=== PATIENT | female | born 1955 | race Hispanic/Latino ===

== ENCOUNTER 2022-01-19 20:42 | Emergency (ER) | payer BC ==
[2022-01-19 22:00] LABS: Absolute Lymphocytes (CBC) 2.3 K/uL (0.7-4.9); Hematocrit 36.9 % (36.0-45.0); Lymphocytes % 24.6 % (15.3-44.8); MPV 8.3 fL (7.6-11.3)
[2022-01-19 22:01] LABS: Protime INR 1.12
[2022-01-19 22:22] LABS: ALT/SGPT 26 U/L (12-78); Albumin 3.8 g/dL (3.4-5.0); Alkaline Phosphatase 97 U/L (45-117); BUN Blood Urea Nitrogen 21 mg/dL (7-18); Bicarbonate 25 mmol/L (21-32); Bilirubin Total 0.3 mg/dL (0.2-1.0); Glucose Level 120 mg/dL (74-106); NT PRO-BNP 39 pg/mL (<125); Sodium Level 140 mmol/L (136-145); Troponin High Sensitivity 9.7 pg/mL (<58.9)
[2022-01-19 22:23] LABS: AST/SGOT 28 U/L (15-37); Bilirubin Direct < 0.1 mg/dL (0-0.2); Magnesium 2.2 mg/dL (1.8-2.4); Potassium 4.3 mmol/L (3.5-5.1)
--- NOTE | 2022-01-20 00:22 | EDPHYS ---
Physician Documentation [facility] Name: Yasmany Calvert Age: 66 yrs Sex: Female : 1955 Arrival Date: 01/19/2022 Time: 20:48 Bed 15 Private MD: ED Physician Eduar Cartwright HPI: 01/19 21:30 This 66 yrs old Female presents to ER via Ambulatory with complaints of Headache, Chest cp Pain. 21:30 The patient complains of pain to the right evangelical and left evangelical. The patient cp describes the headache as aching. Onset: The symptoms/episode began/occurred 2 hour(s) ago. 21:30 Associated signs and symptoms: Pertinent positives: chest pain, shortness of breath, cp numbness to left lower leg, Pertinent negatives: neck stiffness, vision changes, vomiting, weakness. Severity of symptoms: in the emergency department the pain is unchanged, despite home interventions. 21:30 The patient has been recently seen by a physician: LYNN 3 day(s) ago, with similar cp presenting complaints, and apparently given a diagnosis of vertigo, prescribed meclizine and metoprolol. Historical: - Allergies: 20:51 No Known Allergies; lp1 - Home Meds: 20:51 None [Active]; lp1 - PMHx: 20:51 Hypertensive disorder; lp1 - PSHx: 20:51 None; lp1 - Immunization history:: Adult Immunizations up to date, Client reports receiving the Suleiman \\T\\ Suleiman single-dose vaccine. - Social history:: Smoking status: Patient denies any tobacco usage or history of. ROS: 21:35 Constitutional: Negative for body aches, chills, fever, poor PO intake. cp 21:35 Cardiovascular: Positive for chest pain, Negative for edema, palpitations. cp 21:35 Respiratory: Negative for cough, shortness of breath, wheezing. cp 21:35 Abdomen/GI: Negative for abdominal pain, nausea, vomiting, and diarrhea. 21:35 Eyes: Negative for injury, pain, redness, and discharge. cp 21:35 ENT: Negative for drainage from ear(s), ear pain, sore throat, difficulty swallowing, difficulty handling secretions. 21:35 Back: Negative for pain at rest, pain with movement. 21:35 Skin: Negative for cellulitis, rash. 21:35 Neuro: Positive for headache, numbness to left lower leg, Negative for altered mental status, syncope, weakness. 21:35 All other systems are negative. Exam: 21:02 ECG was reviewed by the Attending Physician. cp 21:40 Constitutional: The patient appears in no acute distress, alert, awake, cp non-diaphoretic, non-toxic, well developed, well nourished, uncomfortable. 21:40 Head/Face: Normocephalic, atraumatic. cp 21:40 Eyes: Periorbital structures: appear normal, Pupils: equal, round, and reactive to cp light and accomodation, Extraocular movements: intact throughout, Conjunctiva: normal, no exudate, no injection, Sclera: no appreciated abnormality, Lids and lashes: appear normal, bilaterally. 21:40 ENT: External ear(s): are unremarkable, Nose: is normal, Mouth: Lips: moist, Oral mucosa: pink and intact, moist, Posterior pharynx: Airway: no evidence of obstruction, patent. 21:40 Neck: ROM/movement: is normal, is supple, without pain, no range of motions limitations. 21:40 Chest/axilla: Inspection: normal, Palpation: is normal, no crepitus, no tenderness. 21:40 Cardiovascular: Rate: normal, Rhythm: regular, Edema: is not appreciated, JVD: is not appreciated. 21:40 Respiratory: the patient does not display signs of respiratory distress, Respirations: normal, no use of accessory muscles, no retractions, labored breathing, is not present, Breath sounds: are clear throughout, no decreased breath sounds, no stridor, no wheezing. 21:40 Abdomen/GI: Inspection: abdomen appears normal, Palpation: abdomen is soft and non-tender, in all quadrants. 21:40 Back: pain, is absent, ROM is normal. 21:40 Neuro: Orientation: to person, place \\T\\ time. Mentation: is normal, Cerebellar function: Romberg testing is negative, heel to hensley testing is normal, Motor: moves all fours, strength is normal, Sensation: numbness, that is mild, of the left lower leg. Vital Signs: 20:51 BP 177 / 83; Pulse 83; Resp 18; Temp 98.6(O); Pulse Ox 100% on R/A; Weight 62.6 kg (R); lp1 Height 5 ft. 0 in. (152.40 cm); Pain 6/10; 22:00 BP 152 / 66; Pulse 66; Resp 15; Pulse Ox 98% on R/A; sm5 01/20 00:20 BP 137 / 68; Pulse 70; Resp 21; Pulse Ox 99% on R/A; sm5 01:30 BP 155 / 82; Pulse 76; Resp 14; Pulse Ox 100% on R/A; sm5 02:47 BP 168 / 78; Pulse 72; Resp 12; Pulse Ox 99% on R/A; sm5 01/19 20:51 Body Mass Index 26.95 (62.60 kg, 152.40 cm) lp1 MDM: 01/19 21:25 Patient medically screened. cp 01/20 00:00 Data reviewed: vital signs, nurses notes, lab test result(s), EKG, radiologic studies, cp CT scan, plain films. 00:00 Test interpretation: by ED physician or midlevel provider: ECG, plain radiologic cp studies. Counseling: I had a detailed discussion with the patient and/or guardian regarding: the historical points, exam findings, and any diagnostic results supporting the discharge/admit diagnosis, lab results, radiology results, the need to transfer to another facility, [facility] does not immediately have the required specialist. Response to treatment: the patient's symptoms have markedly improved after treatment. 01/19 21:39 Order name: Basic Metabolic Panel; Complete Time: 23:27 cp 01/19 23:27 Interpretation: Normal except: CL 109; GLUC 120; BUN 21; GFR 53. cp 01/19 21:39 Order name: CBC with Diff; Complete Time: 22:05 cp 01/19 23:27 Interpretation: Normal except: EOSINOPHIL % 5.2. cp 01/19 21:39 Order name: LFT's; Complete Time: 23:27 cp 01/19 23:28 Interpretation: Normal except: GLOB 4.2; A/G 0.9. cp 01/19 21:39 Order name: Magnesium; Complete Time: 23:27 cp 01/19 21:39 Order name: NT PRO-BNP; Complete Time: 23:27 cp 01/19 21:39 Order name: PT-INR; Complete Time: 22:05 cp 01/19 21:39 Order name: Troponin HS; Complete Time: 23:27 cp 01/19 21:39 Order name: XRAY Chest (1 view) cp 01/19 21:39 Order name: CT Head Angio cp 01/19 21:39 Order name: CT Neck Angio cp 01/19 22:09 Order name: CT Head Brain wo Cont cp 01/20 00:13 Order name: COVID-19/FLU A+B (Document "Date of Onset" if Symptomatic) mw2 01/19 20:52 Order name: EKG - Nurse/Tech; Complete Time: 20:59 lp1 01/19 20:52 Order name: EKG; Complete Time: 20:53 lp1 01/19 21:39 Order name: Cardiac monitoring; Complete Time: 21:46 cp 01/19 21:39 Order name: IV Saline Lock; Complete Time: 21:46 cp 01/19 21:39 Order name: Labs collected and sent; Complete Time: 22:15 cp 01/19 21:39 Order name: O2 Per Protocol; Complete Time: 21:46 cp 01/19 21:39 Order name: O2 Sat Monitoring; Complete Time: 21:46 cp EC/19 21:02 Rate is 72 beats/min. Rhythm is regular. RI interval is normal. QRS interval is cp prolonged at 126 msec. QT interval is normal. T waves are Inverted in lead aVR. Interpreted by me. Reviewed by me. Administered Medications: 01/20 02:50 Drug: morphine 2 mg Route: IVP; Site: right antecubital; vc1 02:50 Drug: NS 0.9% 1000 ml Route: IV; Rate: 100 ml/hr; Site: right antecubital; vc1 Disposition: 07:16 Co-signature as Attending Physician, Eduar Cartwright MD. [facility] Disposition Summary: 01/20/22 00:21 Transfer Ordered Reason: Higher level of care cp Condition: Stable cp Problem: new cp Symptoms: have improved cp Transfer Location: [facility](01/20/22 02:58) [facility] Accepting Physician: Dr. Caldwell(01/20/22 04:00) vc1 Diagnosis - Aneurysm of carotid artery - Right cp - Headache [facility] Forms: - Medication Reconciliation Form cp - SBAR form cp Signatures: Dispatcher [employer] EDAlison Junior RN RN lp1 Page, BEA Sr cp, Maurice, MD MD mh7 Irene Carrion RN RN vc1 Giselle Lagunas PA PA sb3 Corrections: (The following items were deleted from the chart) 00:52 04 21:30 This 66 yrs old Female presents to ER via Ambulatory with complaints of cp Headache, Chest Pain. cp 01/20 02:58 00:21 Doctor lesly [facility] 02:58 00:21 [place] [id number] 04:00 02:58 Dr. Caldwell [facility] vc1
--- NOTE | 2022-01-20 00:22 | ER ---
Nurse's Notes [facility] Name: Yasmany Calvert Age: 66 yrs Sex: Female : 1955 Arrival Date: 01/19/2022 Time: 20:48 Bed 15 Private MD: Diagnosis: Aneurysm of carotid artery-Right;Headache Presentation: 01/19 20:49 Chief complaint: Patient's son or daughter states: Reports an hour ago had sudden onset lp1 of headache to bilateral temporal regions and chest pain with shortness of breath, reports feeling left leg numbness; recently dx with vertigo 3 days ago and prescribed Meclizine and Metoprolol. Coronavirus screen: At this time, the client does not indicate any symptoms associated with coronavirus-19. Ebola Screen: No symptoms or risks identified at this time. Risk Assessment: Do you want to hurt yourself or someone else? Patient reports no desire to harm self or others. Onset of symptoms was January 19, 2022 at 19:45. 20:49 Method Of Arrival: Ambulatory lp1 20:49 Acuity: RADHA 2 lp1 21:00 Initial Sepsis Screen: Does the patient meet any 2 criteria? No. Patient's initial lp1 sepsis screen is negative. Does the patient have a suspected source of infection? No. Patient's initial sepsis screen is negative. Triage Assessment: 01/20 00:59 Headache History: The patient has had previous headaches and this one is more severe sm5 than previous episodes. General: Appears in no apparent distress. Behavior is cooperative. Pain: Complains of pain in left latter-day and right latter-day Pain currently is 7 out of 10 on a pain scale. Pain began suddenly, Also complains of no other associated symptoms. Historical: - Allergies: 01/19 20:51 No Known Allergies; lp1 - Home Meds: 20:51 None [Active]; lp1 - PMHx: 20:51 Hypertensive disorder; lp1 - PSHx: 20:51 None; lp1 - Immunization history:: Adult Immunizations up to date, Client reports receiving the Suleiman \\T\\ Suleiman single-dose vaccine. - Social history:: Smoking status: Patient denies any tobacco usage or history of. Screenin:52 VAN Screening: Arm Drift: Patient shows no arm weakness. Patient is VAN negative. lp1 Visual Disturbance: No visual disturbance noted. Aphasia: No aphasia noted. Neglect: No neglect noted. 22:16 Abuse screen: Denies threats or abuse. Denies injuries from another. Nutritional sm5 screening: No deficits noted. Tuberculosis screening: No symptoms or risk factors identified. Fall Risk IV access (20 points). Total Daigle Fall Scale indicates No Risk (0-24 pts). Assessment: 21:40 General: Appears in no apparent distress. Behavior is cooperative, appropriate for age. sm5 Pain: Complains of pain in head, chest. Neuro: Level of Consciousness is awake, alert, obeys commands, Oriented to person, place, time, situation, Reports headache. Cardiovascular: Reports chest pain, Capillary refill < 3 seconds Patient's skin is warm and dry. Respiratory: No deficits noted. Airway is patent Trachea midline Respiratory effort is even, unlabored. 22:51 Reassessment: No changes from previously documented assessment. Patient and/or family sm5 updated on plan of care and expected duration. Pain level reassessed. Patient is alert, oriented x 3, equal unlabored respirations, skin warm/dry/pink. 23:55 Reassessment: No changes from previously documented assessment. sm5 01/20 00:58 Reassessment: No changes from previously documented assessment. Patient and/or family sm5 updated on plan of care and expected duration. Pain level reassessed. 03:00 Reassessment: No changes from previously documented assessment. Patient is alert, sm5 oriented x 3, equal unlabored respirations, skin warm/dry/pink. Vital Signs: 01/19 20:51 BP 177 / 83; Pulse 83; Resp 18; Temp 98.6(O); Pulse Ox 100% on R/A; Weight 62.6 kg (R); lp1 Height 5 ft. 0 in. (152.40 cm); Pain 6/10; 22:00 BP 152 / 66; Pulse 66; Resp 15; Pulse Ox 98% on R/A; sm5 01/20 00:20 BP 137 / 68; Pulse 70; Resp 21; Pulse Ox 99% on R/A; sm5 01:30 BP 155 / 82; Pulse 76; Resp 14; Pulse Ox 100% on R/A; sm5 02:47 BP 168 / 78; Pulse 72; Resp 12; Pulse Ox 99% on R/A; sm5 01/19 20:51 Body Mass Index 26.95 (62.60 kg, 152.40 cm) lp1 ED Course: 01/19 20:48 Patient arrived in ED. kz 20:49 Arm band placed on. lp1 20:51 Triage completed. lp1 21:22 Remberto Mcintyre PA is PHCP. cp 21:22 Eduar Cartwright MD is Attending Physician. cp 21:39 Nadia Crouch RN is Primary Nurse. sm5 21:40 Inserted saline lock: 20 gauge in right antecubital area, using aseptic technique. sm5 Blood collected. 22:02 XRAY Chest (1 view) In Process Unspecified. EDMS 22:17 Patient has correct armband on for positive identification. Placed in gown. Bed in low sm5 position. Call light in reach. Side rails up X 1. security monitor on. Pulse ox on. NIBP on. 23:03 CT Head Angio In Process Unspecified. EDMS 23:03 CT Neck Angio In Process Unspecified. EDMS 23:03 CT Head Brain wo Cont In Process Unspecified. EDMS 01/20 00:24 initiated a transfer with Erlin from [facility] [place]. mw2 00:32 COVID-19/FLU A+B (Document "Date of Onset" if Symptomatic) Sent. sm5 00:59 No provider procedures requiring assistance completed. sm5 02:30 canceled transfer with [facility] due to family wanting to go to [place] [id number] [facility]. 02:33 Initiated a transfer with Dayanara from [facility]. mw2 02:57 administrative approval given by Dayanara Alejandra/ patient has been accepted to [address] Neuro ICU/ Dr. Caldwell accepted the patient in transfer/ report to be call to [phone]. 03:59 Patient transferred, IV remains in place. vc1 Administered Medications: 02:50 Drug: morphine 2 mg Route: IVP; Site: right antecubital; vc1 02:50 Drug: NS 0.9% 1000 ml Route: IV; Rate: 100 ml/hr; Site: right antecubital; vc1 Outcome: 00:21 ER care complete, transfer ordered by . cp 03:59 Transferred by ground EMS to [facility], Transfer form completed. X-rays sent vc1 w/ patient. 03:59 Condition: good 03:59 Instructed on the need for transfer, Demonstrated understanding of instructions. 04:00 Patient left the ED. vc1 Signatures: Dispatcher [employer] EDAlison Junior, RN RN lp1 Remberto Mcintyre PA PA cp [place], MyKena mw2 Nadia Crouch RN RN sm5 Irene Carrion RN RN vc1 Jenni Lin Corrections: (The following items were deleted from the chart) 01/19 21:00 20:49 Acuity: RADHA 3 lp1 lp1
[2022-01-20 01:15] LABS: SARS-COV-2 RT PCR NEGATIVE (NEGATIVE)
[2022-01-20] MEDS ORDERED: MORPHINE 2 MG/ML SYR ONE (02:49)
--- NOTE | 2022-01-20 08:07 | EKG ---
Test Date: 2022-01-19 Test Time: 20:55:19 [employer]: MIK MEASUREMENT RESULTS: Intervals: Rate: 72 [place]: 164 QRSD: 126 QT: 388 QTc: 424 [place]: P: 51 NJ: 164 QRS: -75 T: 48 INTERPRETIVE STATEMENTS: Normal sinus rhythm Left axis deviation Nonspecific intraventricular block Cannot rule out Septal infarct, age undetermined Abnormal ECG No previous ECG available for comparison Electronically Signed On 01-20-22 08:06:50 CDT by Jesus Salas
[2022-01-20 12:39] VITALS: TEMP 98.6
[2022-01-20 12:45] VITALS: BP 168/78; O2SAT 99
--- NOTE | 2022-01-20 12:45 | RAD REPORT ---
EXAM DESCRIPTION: CT - Head Brain Wo Cont - 01/20/2022 6:46 am CLINICAL HISTORY: Headache, new or worsening COMPARISON: None Available. TECHNIQUE: Multiple helical axial tomographic images were obtained of the head without intravenous c ontrast. Subsequent axial images were obtained of the head and neck following administration of intra venous contrast per angiographic protocol. MIP reformatted images were obtained. This exam was perfor med according to our departmental dose-optimization program, which includes automated exposure contro l, adjustment of the mA and/or kV according to patient size and/or use of iterative reconstruction te chnique. FINDINGS: Head: There is a 4 mm saccular aneurysm arising from the communicating segment of the right internal caroti d artery (series 508, image 40; series 511, image 94). Intracranial segments of the bilateral internal carotid arteries appear patent without significant st enosis or occlusion. Bilateral anterior and middle cerebral arteries appear patent without significan t stenosis or occlusion. Intracranial segments of the bilateral vertebral arteries, basilar artery, a nd posterior cerebral arteries appear patent without significant stenosis or occlusion. Major dural v enous sinuses are grossly patent. There is no acute intracranial hemorrhage. No mass. No midline shift. No ventriculomegaly. Hurt-white matter differentiation is maintained. There is minimal paranasal sinus mucosal thickening. Mastoid air cells and middle ear spaces are neeta r. Orbits and orbital contents are unremarkable. Osseous structures are unremarkable. Surrounding soft tissues are unremarkable. Neck: Small amount of atherosclerotic plaque involving the right carotid bulb, bilateral proximal ICAs, and bilateral common carotid arteries is demonstrated. There is atherosclerotic plaque with short segmen t luminal narrowing involving the proximal left vertebral artery. There is a short segment luminal na rrowing of the right vertebral artery at the level of C6-C7 adjacent to uncovertebral osteophytes. Ca rotid arterial vasculature of the neck appears patent without significant stenosis or occlusion. Thyroid gland appears unremarkable. Salivary glands appear unremarkable. No evidence of adenopathy. R etropharyngeal space appears normal. Epiglottis appears normal. Larynx and vocal folds appear unremar kable. Dental fillings are present with associated artifact which limits evaluation of the oral cavit y. Visualized lungs are clear. Degenerative disc space narrowing and osteophyte formation at C5-C6 and C6-C7 is demonstrated with as sociated neural foraminal and central canal narrowing. IMPRESSION: 1. No acute intracranial process. 2. 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 3. Mild carotid atherosclerotic disease in the neck without significant carotid stenosis. 4. Short segment areas of cervical vertebral artery narrowing bilaterally as above. 5. Cervical spine degenerative changes. THIS REPORT CONTAINS FINDINGS THAT MAY BE CRITICAL TO PATIENT CARE: The findings were verbally discu ssed via telephone conference with BEA Laureano by Dr. Jaquez at 2350 hours central time on January 19, 2022. The results were acknowledged and understood. Electronically signed by: Carl Jaquez MD 01/20/2022 12:00 AM CDT Due to temporary technical issues with the PACS/Fluency reporting system, reports are being signed by the in house radiologist without review as a courtesy to ensure prompt reporting. The interpreting r adiologist is fully responsible for the content of the report.
--- NOTE | 2022-01-20 12:55 | RAD REPORT ---
EXAM DESCRIPTION: RAD - Chest Single View - 01/19/2022 10:00 pm CLINICAL HISTORY: CHEST PAIN. COMPARISON: None. TECHNIQUE: Single view AP chest radiograph(s). FINDINGS: Trace diffuse pulmonary interstitial thickening. No infiltrate identified. No pleural effu maria luisa. No pneumothorax. Nonenlarged cardiomediastinal silhouette. No significant osseous abnormality. IMPRESSION: Trace diffuse pulmonary interstitial thickening. No infiltrate identified. Electronically signed by: Helen John MD 01/19/2022 11:39 PM CDT Due to temporary technical issues with the PACS/Fluency reporting system, reports are being signed by the in house radiologist without review as a courtesy to ensure prompt reporting. The interpreting r adiologist is fully responsible for the content of the report.
== END 2022-01-20 04:00 | disposition short-term general hospital (02) ==
LOC: ER 20:42
DX: I72.0 Aneurysm of carotid artery (principal); R07.9 Chest pain, unspecified; I10 Essential (primary) hypertension; Z20.822 Contact with and (suspected) exposure to COVID-19
CPT/HCPCS: 93005; 85025; 80048; 36415; 83735; 85610; 80076; 84484; 83880; 0240U; 70450; 70496; 70498; 71045; 96374; 99285; Q9967; J2270